=== PATIENT | male | born 1995 | race Caucasian/White ===

== ENCOUNTER 2021-01-28 21:07 | Emergency (ER) | payer BC ==
[~2021-01-28] VITALS: Ht 165.1 cm; Wt 74.8 kg
[2021-01-28 21:11] VITALS: BP 182/110
[2021-01-28] MEDS ORDERED: KETOROLAC 30 MG/ML VIAL IM ONE (23:05)
[2021-01-28] MEDS ORDERED: CYCL-711 PO (23:21)
[2021-01-28 23:25] VITALS: BP 182/110
--- NOTE | 2021-01-28 23:25 | NUR ---
Patient discharged with v/s stable. Written and verbal after care instructions given and explained. Patient alert, oriented and verbalized understanding of instructions. Ambulatory with steady gait. All questions addressed prior to discharge. ID band removed. Patient advised to follow up with PMD. Rx of FLEXERIL given. Patient educated on indication of medication including possible reaction and side effects. Opportunity to ask questions provided and answered.
== END 2021-01-28 23:25 | disposition home or self-care (01) ==
LOC: MED 21:07
DX: M62.838 Other muscle spasm (principal); Z79.899 Other long term (current) drug therapy
CPT/HCPCS: 96372; 99283; J1885